=== PATIENT | female | born 1960 | race Caucasian/White ===

== ENCOUNTER 2023-12-29 08:13 | Outpatient (CLI) | payer BC, SELFPAY ==
--- NOTE | ~2023-12-29 | US_ITS ---
EXAMINATION: US carotid duplex BI DATE: 12/29/2023 08:52 INDICATION: Right carotid bruit . Intermittent vertigo and right hand disturbance of skin sensation. TECHNIQUE: Grayscale, color Doppler, and pulsed Doppler images of the cervical carotid arteries were obtained. The degree of vessel stenosis is placed in one of the following categories: normal, <50%, 5 0-69%, >=70% but less than near-occlusion, near-occlusion, or total occlusion. Note that percent sten osis relative to normal distal artery lumen diameter is indirectly measured from velocity measurement s as described by Naresh, et al. Radiology 2003; 229:340-346. COMPARISON: None. FINDINGS: RIGHT: The right common carotid artery (CCA) peak systolic velocity (PSV) is 88 cm/s. The right internal car otid artery (ICA) PSV is 95 cm/s. The right ICA end-diastolic velocity (EDV) is 30 cm/s. The right IC A/CCA PSV ratio is 1.1. Grayscale and color Doppler images yield an estimate of <50% diameter reducti on from plaque in the ICA. The external carotid artery (ECA) PSV is 72 cm/s. There is antegrade flow in the right vertebral artery. LEFT: The left CCA PSV is 73 cm/s. The left ICA PSV is 108 cm/s. The left ICA EDV is 32 cm/s. The left ICA/ CCA PSV ratio is 1.5. Grayscale and color Doppler images yield an estimate of <50% diameter reduction from plaque in the ICA. The ECA PSV is 67 cm/s. There is antegrade flow in the left vertebral artery . IMPRESSION: 1. <50% stenosis in the right internal carotid artery. 2. <50% stenosis in the left internal carotid artery. Reviewed, dictated and finalized at location B.
== END 2023-12-29 08:14 ==
LOC: MICIMG 08:17
PROVIDERS: PCP Family Medicine; Visit Provider Nurse Practitioner Family
DX: R09.89 Other specified symptoms and signs involving the circulatory and respiratory systems (principal); I65.23 Occlusion and stenosis of bilateral carotid arteries
CPT/HCPCS: 93880

== ENCOUNTER 2024-05-16 14:31 | Outpatient (CLI) | payer BC, SELFPAY ==
--- NOTE | ~2024-05-16 | MM_ITS ---
EXAMINATION: MM screening kellee BI w chuck HISTORY: Screening mammogram TECHNIQUE: Craniocaudal and mediolateral oblique 3-D tomosynthesis images were obtained and synthetic 2-D images were generated. CAD analysis was submitted and interpreted. COMPARISON: No prior mammogram is available for comparison at this institution. BREAST PARENCHYMAL COMPOSITION:Dense: The breasts are heterogeneously dense, which may obscure small masses. FINDINGS: No suspicious mass, calcification, or architectural distortion are identified in either itzel ast to suggest malignancy. There has been no suspicious interval change. IMPRESSION: No mammographic evidence of malignancy. Recommend routine screening mammography in one year. BI-RADS Category 1: Negative Reviewed, dictated and finalized at location . LEAF GILDER
== END 2024-05-16 14:32 | disposition home or self-care (01) ==
LOC: MICIMG 14:32
PROVIDERS: PCP Nurse Practitioner Family; Visit Provider Nurse Practitioner Family
DX: Z12.31 Encounter for screening mammogram for malignant neoplasm of breast (principal)
CPT/HCPCS: 77063; 77067

== ENCOUNTER 2024-08-10 08:09 | Emergency (ER) | payer BC, SELFPAY ==
--- NOTE | ~2024-08-10 | XR_ITS ---
EXAMINATION: XR chest 2V DATE: 08/10/2024 08:42 INDICATION: Chest pain and jaw pain TECHNIQUE: PA and lateral views of the chest were obtained. COMPARISON: Chest radiograph dated 01/20/2016 FINDINGS: The lungs remain clear with no focal airspace opacities, pulmonary edema, pleural effusion or pneumot horax. The cardiomediastinal silhouette is normal. Moderate thoracic spondylosis. IMPRESSION: 1. No acute cardiopulmonary disease. Reviewed, dictated and finalized at location A. S PLANNER
--- NOTE | 2024-08-10 08:10 | ECG_ITS ---
Test Date: 2024-08-10 08:16:29 Measurements Intervals [place] Rate: 69 P: 67 WV: 231 QRS: 58 QRSD: 85 T: 42 QT: 364 QTc: 392 Interpretive Statements SINUS RHYTHM WITH FIRST DEGREE AV BLOCK BASELINE ARTIFACT- I, II, III, AVR, AVL, AVF, V1 BORDERLINE ECG No previous ECG available for comparison Electronically Signed On 08-10-2024 08:49:52 CERTIFIED PERSONAL TRAINER by Mau Rivera D.O.
[2024-08-10 08:12] VITALS: BP 169/83; PULSE 73; RESP 18; TEMP 36.4; O2SAT 100
[2024-08-10 08:35] LABS: Basophils Absolute Auto 0.1 K/mm3 (0.0-0.1); Basophils Percent Auto 0.9 % (0.2-1.2); Eosinophils Absolute Auto 0.4 K/mm3 (0-0.3); Eosinophils Percent Auto 3.8 % (0-4.4); Hematocrit 42.2 % (37.0-47.0); Hemoglobin 13.7 g/dL (12.0-15.0); Immature Granulocyte Absolute 0.06 K/mm3 (0.00-0.031); Immature Granulocyte Percent A 0.7 % (0-0.5); Lymphocytes Absolute Auto 4.23 K/mm3 (0.9-3.2); Lymphocytes Percent Auto 46.4 % (18.3-44.2); Mean Corpuscular HGB Conc 32.5 g/dl (32-36); Mean Corpuscular Hemoglobin 30.4 pg (26-34); Mean Corpuscular Volume 93.6 fl (80-100); Mean Platelet Volume 9.4 fl (7.4-10.4); Monocytes Absolute Auto 1.4 K/mm3 (0.1-0.6); Monocytes Percent Auto 14.9 % (2.6-8.5); Neutrophils Percent Auto 33.3 % (45.5-73.1); Platelet Count Result 397 k/mm3 (150-375); Red Blood Count 4.51 M/mm3 (4.2-5.4); Red Cell Distribution Width 14.4 % (11.5-14.5); White Blood Count 9.1 K/mm3 (4.5-10.0)
[2024-08-10 08:49] LABS: INR 0.9; Prothrombin Time 12.6 Seconds (11.1-14.7)
[2024-08-10 08:50] LABS: Partial Thromboplastin Time 25.2 Seconds (22.3-36.8)
[2024-08-10 09:07] LABS: Alanine Aminotransferase 19 U/L (6-35); Alkaline Phosphatase 72 U/L (38-126); Anion Gap 8 mmol/L (4-12); Aspartate Amino Transferase 24 U/L (14-36); Bilirubin,Total 0.6 mg/dL (0.2-1.3); Blood Urea Nitrogen 16 mg/dL (7-17); Carbon Dioxide 27 mmol/L (22-30); Chloride 103 mmol/L (98-107); Estimated CRCL calculation 52 ml/min; Estimated Glomerular Filt Rate > 60; Glucose 84 mg/dL (65-110); Lipase 77 U/L (23-300); Sodium 138 mmol/L (137-145)
[2024-08-10 09:19] LABS: Troponin I < 0.012 ng/mL (0.000-0.034)
[2024-08-10 10:54] VITALS: BP 160/81; PULSE 64; RESP 18; O2SAT 100
--- NOTE | 2024-08-10 11:03 | PC.NURSE ---
63yo F to ER c/o chest pain with radiation to neck, back & jaw lasting approx 30 mins. Denies any pain since. Reports JENKINS at the time of chest pain onset, denies N/V or dizziness. Denies recent illness. Pt resting comfortable at this time. Denies cardiac hx, only familial. Pt A&Ox4, speech clear. RR even and unlabored. Skin WDL. Pt placed on continuous cardiac, nibp and pulse oximetry monitor. VS as charted. Call light in reach with family at bedside. Warm blanket provided.
--- NOTE | 2024-08-10 11:33 | ED.GENADULT ---
HPI - General Adult General Chief complaint: Chest Pain Stated complaint: chest pain Time Seen by Provider: 08/10/24 11:19 History of Present Illness HPI narrative: Patient 63-year-old female who presents emergency department chief complaint of chest pain. Patient reports she was driving in her vehicle and started having midsternal chest pain that radiated up into her jaw and neck. The patient states that symptoms lasted about 30 minutes reports they resolved at this point. Patient reports no prior history of cardiac disease reports she has family history cardiac Related Data Allergies Allergy/AdvReac Type Severity Reaction Status Date / Time aspirin Allergy Mild MAKES MY Verified 08/10/24 10:53 STOMACH RAW Review of Systems Review of Systems: A 10 system review of systems was completed on the patient and is negative except for what is stated in the HPI. Nursing and ancillary documentation was reviewed. Exam Narrative: GENERAL: Well-appearing, well-nourished, and in no acute distress. HEAD: Normocephalic, atraumatic. EYES: PERRLA and EOMI. ENT: Nares clear, no rhinorrhea or epistaxis. Mucous membranes moist. NECK: Supple. CHEST: Clear to auscultation. No respiratory distress. HEART: Regular rate and rhythm. No murmur heard. Normal peripheral pulses. ABDOMEN: Soft, nontender, nondistended, normal active bowel sounds. EXTREMITIES: Normal range of motion. No edema. SKIN: Warm, dry, no rash. NEURO: No focal deficits. Alert and oriented x3. PSYCH: Normal mood and affect. Course Vital Signs Vital signs: Vital Signs Temperature 36.4 C 08/10/24 08:12 Pulse Rate 73 08/10/24 08:12 Respiratory Rate 18 08/10/24 08:12 Blood Pressure 169/83 H 08/10/24 08:12 Pulse Oximetry 100 08/10/24 08:12 Oxygen Delivery Room Air 08/10/24 08:12 Temperature 36.4 C 08/10/24 08:12 Pulse Rate 60 08/10/24 11:44 Respiratory Rate 18 08/10/24 11:44 Blood Pressure 120/70 08/10/24 11:44 Pulse Oximetry 99 08/10/24 11:44 Oxygen Delivery Room Air 08/10/24 11:02 Medical Decision Making [facility] Narrative Medical decision making narrative: Differential diagnosis includes ACS, atypical chest pain, CBC was within normal limits CMP was within normal limits initial troponin was negative Repeat troponin was negative Vital Signs Vital Signs: Vital Signs Temperature 36.4 C 08/10/24 08:12 Pulse Rate 73 08/10/24 08:12 Respiratory Rate 18 08/10/24 08:12 Blood Pressure 169/83 H 08/10/24 08:12 Pulse Oximetry 100 08/10/24 08:12 Oxygen Delivery Room Air 08/10/24 08:12 Temperature 36.4 C 08/10/24 08:12 Pulse Rate 60 08/10/24 11:44 Respiratory Rate 18 08/10/24 11:44 Blood Pressure 120/70 08/10/24 11:44 Pulse Oximetry 99 08/10/24 11:44 Oxygen Delivery Room Air 08/10/24 11:02 Lab Data 08/10/24 08:23 08/10/24 08:23 Labs: Lab Results 08/10/24 08/10/24 Range/Units 08:23 11:43 WBC 9.1 (4.5-10.0) K/mm3 RBC 4.51 (4.2-5.4) M/mm3 Hgb 13.7 (12.0-15.0) g/dL Hct 42.2 (37.0-47.0) % MCV 93.6 (80-100) fl MCH 30.4 (26-34) pg MCHC 32.5 (32-36) g/dl RDW 14.4 (11.5-14.5) % Plt Count 397 H (150-375) k/mm3 MPV 9.4 (7.4-10.4) fl Immature Gran % (Auto) 0.7 H (0-0.5) % Neut % (Auto) 33.3 L (45.5-73.1) % Lymph % (Auto) 46.4 H (18.3-44.2) % Moore % (Auto) 14.9 H (2.6-8.5) % Eos % (Auto) 3.8 (0-4.4) % Baso % (Auto) 0.9 (0.2-1.2) % Lymph # (Auto) 4.23 H (0.9-3.2) K/mm3 Moore # (Auto) 1.4 H (0.1-0.6) K/mm3 Eos # (Auto) 0.4 H (0-0.3) K/mm3 Baso # (Auto) 0.1 (0.0-0.1) K/mm3 Abs Immat Gran (auto) 0.06 H (0.00-0.031) K/mm3 Absolute Neuts (auto) 3.0 (1.3-6.7) K/mm3 Absolute Nucleated RBC 0.000 (0.0-0.012) K/mm3 Nucleated RBC % 0.0 (0.0-0.2) % PT 12.6 (11.1-14.7) Seconds INR 0.9 APTT 25.2 (22.3-36.8) Seconds Sodium 138 (137-145) mmol/L Potassium 4.0 (3.4-5.0) mmol/L Chloride 103 (98-107) mmol/L Carbon Dioxide 27 (22-30) mmol/L Anion Gap 8 (4-12) mmol/L BUN 16 (7-17) mg/dL Creatinine 0.87 (0.7-1.0) mg/dL Estim Creat Clear Calc 52 ml/min Estimated GFR > 60 (59 - ) Glucose 84 (65-110) mg/dL Calcium 9.0 (8.4-10.2) mg/dL Total Bilirubin 0.6 (0.2-1.3) mg/dL AST 24 (14-36) U/L ALT 19 (6-35) U/L Alkaline Phosphatase 72 (38-126) U/L Troponin I < 0.012 < 0.012 (0.000-0.034) ng/mL Total Protein 7.0 (6.3-8.2) g/dL Albumin 4.0 (3.5-5.1) g/dL Lipase 77 (23-300) U/L Discharge Plan Discharge Clinical Impression: Chest pain Patient Disposition: Home, Self-Care Condition: Stable Instructions: Antibiotic Form, Chest Pain (ED) Patient Language: Yoruba Follow-up/Referrals: Jer,VERONICA Thacker [Primary Care Provider] - Time of Disposition: 12:32
--- NOTE | 2024-08-10 11:38 | ECG_ITS ---
Test Date: 2024-08-10 11:49:45 Measurements Intervals [place] Rate: 60 P: 31 AR: 223 QRS: 47 QRSD: 80 T: 33 QT: 401 QTc: 401 Interpretive Statements SINUS RHYTHM WITH FIRST DEGREE AV BLOCK BASELINE ARTIFACT- I, II, AVR, V1 BORDERLINE ECG Compared to ECG 08/10/2024 08:16:29 No significant changes Electronically Signed On 08-10-2024 12:00:38 FIELD ARTILLERY FIRE CONTROL MAN by Mau Rivera D.O.
[2024-08-10 11:44] VITALS: BP 120/70; PULSE 60; RESP 18; O2SAT 99
--- OUTSIDE RECORDS SUMMARY | 2024-08-10 11:50 | XMS_ITS | Encounter Summary ---
Author Organization [facility] Address [facility] [place] [address] Care Team Providers Care Collection Officer Name Role Phone Becky Connors MD Primary Care Provider Encounter Details Date Type Department Care Team (Late st Contact Info) Description 01/30/2021 Prep for Procedure [facility] Day [facility] [address] [place] [address] Be Torres MD [address] [place] [address] [phone] Social History Tobacco Use Types Packs/Day Years Used Date Smoking Tobacco: Never Smokeless Tobacco: Never Alcohol Use Standard Drinks/Week Comments No 0 (1 standard drink = 0.6 oz pur e alcohol) AUDIT-C Answer Date Recorded Frequency of Alcohol Consumption Never 03/04/2019 Average Number of Drinks Not on file 019 Frequency of Binge Drinking Not on file 02/04 Comments No Sex and Gender Information Value Date Recorded Sex Assigned at Not on file Legal Sex Female 1:35 AM CDT Gender Identity Not on file Sexual Orientation Not on file documented as of this encounter Plan of Treatment Not on file documented as of this encounter Results * PRE-SURGICAL/PRE-PROCEDURE CORONAVIRUS (COVID 19) (02/04/2021 7:26 AM CDT) SPECIMEN SOURCE NASOPHARYNGEAL SWAB 02/04/2021 7:22 AM CDT [facility] () [facility] CORONAVIRUS SARS COV 2 PCR (RESP) NEGATIVE NEGATIVE 02/05/2021 1:53 AM CDT [facility] Comment: THE SARS-CoV-2 TEST HAS BEEN AUTHORIZED BY THE FDA UNDER AN EUA FOR USE BY AUTHORIZED LABORATORIES. PERFORMED BY NUCLEIC ACID AMPLIFICATION PCR FIRST TEST NO 02/04/2021 7:22 AM CDT [facility] EMPLOYED IN HEALTHCARE NO 02/04/2021 7:22 AM CDT [facility] SYMPTOMATIC DEFINED BY CDC NO 02/04/2021 7:22 AM CDT [facility] HOSPITALIZATION STATUS NO 02/04/2021 7:22 AM CDT [facility] PATIENT IN ICU NO 02/04/2021 7:22 AM CDT [facility] RESIDENT OF [facility] NO 02/04/2021 7:22 AM CDT [facility] NASOPHARYNGEAL SWAB / Unknown 02/04/2021 7:26 AM CDT Be Torres MD MICROBIOLOGY - GENERAL ORDERABLE S Final Result [facility] [address] [place] [address], [place] [phone] [facility] [address] [place] [address], [place] [phone] documented in this encounter Visit Diagnoses Diagnosis Pre-op testing- Primary Preoperative examination, unspecified documented in this encounter Additional Health Concerns Infection Onset Date Last Indicated Resolved Time COVID-19 Rule Out 02/04/2021 02/04/2021 02/05/2021 1:54 AM CDT documented as of this encounter Care Teams Collection Officer Relationship Specialty Start Date End Date Becky Connors MD [address] [place] [address] PCP - General FAMILY PRACTICE 03/04/19 documented as of this encounter
--- OUTSIDE RECORDS SUMMARY | 2024-08-10 11:50 | XMS_ITS | Encounter Summary ---
Author Organization [facility] Address [facility] [place] [address] Care Team Providers Care Dip Brazier Name Role Phone Becky Connors MD Primary Care Provider Encounter Details Date Type Department Care Team (Late st Contact Info) Description 05/17/2020 Prep for Procedure [facility] Day [facility] [address] [place], [place] [phone] Be Torres MD [address] [place] [phone] Social History Tobacco Use Types Packs/Day Years [...] on file Sexual Orientation Not on file COVID-19 Exposure Response Date Recorded In the last month, have you been in contact with someone who was confirmed or suspected to have Coronavirus / COVID-19? No / Unsure 05/07/2020 1:01 PM ARCHITECTURE DRAFTER documented as of this encounter Plan of Treatment Not on file documented as of this encounter Results * (ABNORMAL) PRE-SURGICAL/PRE-PROCEDURE CORONAVIRUS (COVID 19) (05/21/2020 1:00 PM ARCHITECTURE DRAFTER) CORONAVIRUS SARS COV 2 PCR (RESP) DETECTED(A) NOT DETECTED 05/22/2020 9:36 PM ARCHITECTURE DRAFTER [facility] Comment: A Detected result is considered a positive test result for COVID-19. This indicates that RNA from SARS-CoV-2 (formerly 2019-nCoV) was detected, and the patient is infected with the virus and presumed to be contagious. If requested by public health authority, specimen will be sent for additional testing. Please review the Fact Sheets and FDA authorized labeling available for health care providers and patients using the following websites: https://www.[employer].Done In :[employer]/home/Covid-19/HCP/NAAT/fact-sheet2 https://www.[employer].Done In :[employer]/home/Covid-19/Patients/NAAT/ fact-sheet2 This test has been authorized by the FDA under an Emergency Use Authorization (EUA) for use by authorized laboratories. Due to the current public health emergency, [facility] is receiving a high volume of samples from a wide variety of swabs and media for COVID-19 testing. In order to serve patients during this public health crisis, samples from appropriate clinical sources are being tested. Negative test results derived from specimens received in non-commercially manufactured viral collection and transport media, or in media and sample collection kits not yet authorized by FDA for COVID-19 testing should be cautiously evaluated and the patient potentially subjected to extra precautions such as additional clinical monitoring, including collection of an additional specimen. Methodology: Nucleic Acid Amplification Test (NAAT) includes RT-PCR or TMA Additional information about COVID-19 can be found at the [facility] website: www.[employer].Done In :[employer]/Covid19. Test performed at [facility] [address] [place] [address] Director: CODY MARQUEZ DO,MPH FIRST TEST YES 05/21/2020 12:56 PM ARCHITECTURE DRAFTER [facility] EMPLOYED IN HEALTHCARE NO 05/21/2020 12:56 PM ARCHITECTURE DRAFTER [facility] SYMPTOMATIC DEFINED BY CDC NO 05/21/2020 12:56 PM ARCHITECTURE DRAFTER [facility] DATE OF SYMPTOM ONSET =FASTING UNKNOWN 05/21/2020 1:09 PM ARCHITECTURE DRAFTER [facility] HOSPITALIZATION STATUS NO 05/21/2020 12:56 PM ARCHITECTURE DRAFTER [facility] PATIENT IN ICU NO 05/21/2020 12:56 PM ARCHITECTURE DRAFTER [facility] RESIDENT OF [facility] NO 05/21/2020 12:56 PM ARCHITECTURE DRAFTER [facility] =FASTING UNKNOWN 05/21/20 1:09 PM ARCHITECTURE DRAFTER [facility] PATIENT'S RACE WHITE OR 05/21/2020 12:56 PM ARCHITECTURE DRAFTER [facility] ETHNICITY NONHISPANIC 05/21/2020 12:56 PM ARCHITECTURE DRAFTER [facility] SOURCE (QST) NASOPHARYNGEAL SWAB 05/21/2020 12:56 PM ARCHITECTURE DRAFTER [facility] NASOPHARYNGEAL SWAB / Unknown 05/21/2020 1:00 PM ARCHITECTURE DRAFTER us Be Torres MD MICROBIOLOGY - GENERAL ORDERABLE S Final Result Performing Organization Address City/State/[facility] Co de Phone Number [facility] [address] [place] [address], [facility] [address] documented in this encounter Visit Diagnoses Diagnosis Preop testing- Primary Preoperative examination, unspecified documented in this encounter Additional Health Concerns Infection Onset Date Last Indicated Resolved Time COVID-19 Rule Out 05/21/2020 05/21/2020 05/22/2020 9:36 PM ARCHITECTURE DRAFTER COVID-19 Confirmed 05/21/2020 05/21/2020 12:34 AM ARCHITECTURE DRAFTER COVID-19 Rule Out 02/04/2021 02/04/2021 02/05/2021 1:54 AM CDT documented as of this encounter Care Teams Dip Brazier Relationship Specialty Start Date End Date Becky Connors MD [address] [place] [phone] PCP - General FAMILY PRACTICE 03/04/19 documented as of this encounter
--- OUTSIDE RECORDS SUMMARY | 2024-08-10 11:50 | XMS_ITS | Clinical Summary ---
Author Organization [facility] Address [address] [place] [address] Care Team Providers Care Finisher Brush Name Role Phone Becky Connors MD Primary Care Provider Allergies Active Allergy Reactions Criticality Noted Date Comments Aspirin Nausea and Vomiting 04/08/2020 Medications doxycycline hyclate (VIBRAMYCIN) 100 MG capsuleIndicati ons:Chronic cough Take 1 capsule (100 mg total) by mouth 2 (two) times daily. 28 capsule 11/05/2022 Active famotidine (PEPCID) 20 MG tabletIndicatio ns:Chronic cough Take 1 tablet (20 mg total) by mouth 2 (two) times daily. 60 tablet 11/05/2022 Active methylPREDNISol one, JESSICA, (MEDROL DOSEPAK) 4 MG tabletIndicatio ns:Chronic cough 6 TABLETS ON DAY ONE, 5 TABLETS DAY TWO, 4 TABLETS DAY THREE, 3 TABLETS DAY FOUR, 2 TABLETS DAY FIVE, AND 1 TABLET DAY SIX 1 each 11/05/2022 Active traMADol (ULTRAM) 50 MG tabletIndicatio ns:Acute Pain < 3 Day Supply Take 1 tablet (50 mg total) by mouth every 6 (six) hours as needed for Pain. Indications: Acute Pain < 3 Day Supply 10 tablet 12/15/2023 Active Active Problems Problem Noted Date Diagnosed Date Screening for colon cancer 05/23/2020 Overview (05/23/2020): Added automatically from request for surgery [id number] Generalized abdominal pain 05/08/2020 Overview (05/08/2020): Added automatically from request for surgery [id number] Capsulitis 11/01/2013 Hypertrophic condition of skin 11/01/2013 Onychomycosis 11/01/2013 Foot pain 10/11/2013 Allergic rhinitis 08/14/2011 Family History Medical History Relation Comments Cancer Father Heart Disease Father Heart Disease Mother Kidney Disease Mother Relation Status Comments Father Mother Social History Tobacco Use Types Packs/Day Years Used Date Smoking Tobacco: Never Smokeless Tobacco: Never Tobacco Cessation:Counseling Given: No Alcohol Use Standard Drinks/Week Comments No 0 (1 standard drink = 0.6 oz pur e alcohol) AUDIT-C Answer Date Recorded Frequency of Alcohol Consumption Never 03/04/2019 Average Number of Drinks Not on file 019 Frequency of Binge Drinking Not on file 02/04 PHQ-2 Answer Date Recorded Patient Health Questionnaire-2 Score 0 11/05/2022 Comments No Sex and Gender Information Value Date Recorded Sex Assigned at Not on file Legal Sex Female 1:35 AM CDT Gender Identity Not on file Sexual Orientation Not on file Last Filed Vital Signs Vital Sign Reading Time Taken Comments Blood Pressure 124/58 12/15/2023 3:34 AM CDT Pulse 58 12/15/2023 3:34 AM CDT Temperature 35.9 C (96.7 F) 12/15/2023 3:34 AM CDT Respiratory Rate 16 12/15/2023 3:34 AM CDT Oxygen Saturation 100% 12/15/2023 3:34 AM CDT Inhaled Oxygen Concentration - - Weight 69.9 kg (154 lb) 12/15/2023 1:15 AM CDT Height 165.1 cm (5' 5 ) 12/15/2023 1:15 AM CDT Body Mass Index 25.63 12/15/2023 1:15 AM CDT Plan of Treatment Health Maintenance Due Date Last Done Comments Cervical Cancer Screening Pa p Smear (Age 30 to 64) Every 3 Years 1960 Annual Physical 10/18/1963 Hepatitis C 1978 DTaP, Tdap and Td Vaccines ( 1 - Tdap) 10/18/1979 Cervical Cancer Screening Pa p with HPV Testing (Age 30 to 64) Every 5 Years 1990 Cervical Cancer Screening with HPV 1990 Mammogram Screening 2000 Zoster Vaccines (1 of 2) 2010 PHQ-2 (Physician [place]) 11/06/2023 11/05/2022 COVID-19 Vaccine (1 - 2023-2 5 season) 2024 Influenza Adult (#1) 2024 PHQ-2 (Physician [place]) 07/05/2024 11/05/2022 Colorectal Cancer Screening Colonoscopy (10 Years) 02/07/2031 02/07/2021 RSV Immunization or 60+ Years (1 - 1-dose 75+ series) 10/18/2035 Meningococcal B Vaccine Aged Out No l onger eligible based on patient's age to complete this topic Meningococcal Vaccine Aged Out No mary paul eligible based on patient's age to complete this topic Pneumococcal Vaccine: Pediat rics (0 to 5 Years) and At-Risk Patients (6 to 64 Years) Aged Out No longer eligi ble based on patient's age to complete this topic RSV Immunizations Under 20 Months Aged Out No longer eligible based on patient's age to complete this topic [place] [address] [place] [address] Care Teams Finisher Brush Relationship Specialty Start Date End Date Becky Connors MD [address] [place] [id number] PCP - General FAMILY PRACTICE 03/04/19
[2024-08-10 12:12] LABS: Troponin I < 0.012 ng/mL (0.000-0.034)
[2024-08-10 12:43] VITALS: BP 122/86; PULSE 66; RESP 16; TEMP 36.4; O2SAT 99
== END 2024-08-10 12:45 | disposition home or self-care (01) ==
PROVIDERS: Emergency Provider Emergency Medicine; PCP Nurse Practitioner Family
DX: R07.2 Precordial pain (principal); I44.0 Atrioventricular block, first degree
CPT/HCPCS: 36415; 71046; 80053; 83690; 84484; 85025; 85610; 85730; 93005; 99284

== ENCOUNTER 2024-08-30 07:41 | Outpatient (CLI) | payer BC, SELFPAY ==
--- NOTE | ~2024-08-30 | US_ITS ---
EXAMINATION: US abdomen complete DATE: 08/30/2024 08:17 INDICATION: Precordial pain. Right-sided pain. TECHNIQUE: Multiple grayscale and Doppler ultrasound images of the abdomen were obtained. COMPARISON: None FINDINGS: The visualized portions of the head, body, and tail of pancreas are normal. Abdominal aorta is normal in caliber. Inferior vena cava is normal. There are cysts in the liver measuring up to 16 mm. No liver surface nodularity. There is normal flow in main portal vein. The gallbladder is normal in size. There is a 3 mm polyp in the gallbladder, likely a benign cholesterol polyp needing no follo w-up. No gallstones or gallbladder wall thickening. There is no sonographic Shah's sign. The common duct is normal and measures 3 mm. The spleen is normal in size. The kidneys are normal in size. IMPRESSION: 1. No etiology for the patient's symptoms. Reviewed, dictated and finalized at location [] WORKER
== END 2024-08-30 07:42 | disposition home or self-care (01) ==
LOC: MICIMG 07:41
PROVIDERS: PCP Nurse Practitioner Family; Visit Provider Nurse Practitioner Family
DX: R07.2 Precordial pain (principal)
CPT/HCPCS: 76700

== ENCOUNTER 2024-10-04 01:13 | Day surgery (SDC) | payer BC, SELFPAY ==
[2024-09-27 13:23] VITALS: BMI 25.9
--- NOTE | 2024-09-27 13:24 | PC.NURSE ---
Report to the Outpatient Waiting Room, entrance under the green pavilion located off [facility], at time _1215_ on date _[id number]_. Planned Procedure Time: _215pm_.? Time changes happen often and if your time is changed the preop area will call you the afternoon before. - You and your visitor will be asked to self-screen and do not enter if you have any COVID symptoms. Please call surgeon if you need to reschedule. - A mask is optional within the hospital at this time. Patients may have clear liquids (water, carbonated beverages, clear teas, apple juice) until 3 hours prior to surgery with a maximum of 20 ounces. - No food from midnight until time of surgery and no smoking, or chewing tobacco (or any form of nicotine). No chewing gum, candy or mints. Take only the following medications with a SIP of water on the morning of surgery: __None___ DO NOT STOP ANY OF YOUR OTHER PRESCRIPTION MEDICATIONS PRIOR TO SURGERY EXCEPT THE FOLLOWING Hold all vitamins and supplements for 3 days per anesthesiologist. Medications to discontinue per physician Date to take last dose Please no make-up, nail ukrainian, hairspray, perfume, deodorant, or body powder the day of surgery.? No jewelry (including any body piercings) or valuables the day of surgery, leave them at home.? Please take a shower or bath the night before, or the morning of, surgery with an antibacterial soap.? Wear comfortable, loose fitting clothing.? - Jewelry must be removed prior to entering the operating room.? Rings and piercings that are not removed may be cut off. - The hospital will not accept responsibility for valuables.? - Please leave all valuables, including medications, at home the day of surgery. If you are going home after surgery, a licensed racecar driver must drive you home.? - NO public transportation without another adult if you receive anesthesia. - We recommend that an adult stay with you for 24 hours following discharge. - We also recommend that you do not drive, make important decision, drink alcoholic beverages, or take any drugs that were not prescribed by your health care provider for at least 24 hours after your discharge time. Follow any additional instructions given to you from your surgeon. Telephone instructions given to __Welizandroy__and asked if any additional questions and then verbalized understanding. Patient advised to call surgeon office or pre surgery nurse liaison [phone] if any additional questions.
[2024-10-04] VITALS (10 sets, daily range): BP systolic 118–174; BP diastolic 62–74; PULSE 68–80; RESP 12–20; TEMP 36.3–37.1; O2SAT 98–100; BMI 25.9
--- OUTSIDE RECORDS SUMMARY | 2024-10-04 01:16 | XMS_ITS | Clinical Summary ---
Author Organization [facility] Address [address] [place] [address] Care Team Providers Care Gravity Prospector Name Role Phone Becky Connosr MD Primary Care Provider Allergies Active Allergy [...] (05/23/2020): Added automatically from request for surgery [id number] Generalized abdominal pain 05/08/2020 Overview (05/08/2020): Added automatically from request for surgery [id number] Capsulitis 11/01/2013 Hypertrophic condition of skin 11/01/2013 [...] 2000 Zoster Vaccines (1 of 2) 2010 COVID-19 Vaccine ( - 2023-2 5 season) 2024 Influenza Adult (#1) 2024 PHQ-2 (Physician [place]) 07/05/2024 11/05/2022 Colorectal Cancer Screening Colonoscopy (10 [...] patient's age to complete this topic [place] [address] [place] [address] Care Teams Gravity Prospector Relationship Specialty Start Date End Date Becky Connors MD [address] [place] [address] PCP - General FAMILY PRACTICE 03/04/19
--- OUTSIDE RECORDS SUMMARY | 2024-10-04 01:16 | XMS_ITS | Encounter Summary ---
Author Organization [facility] Address [facility] [place] [address] Care Team Providers Care Credit Card Associate Name Role Phone Becky Connors MD Primary Care Provider Encounter Details Date Type Department Care Team (Late st Contact Info) Description 01/30/2021 Prep for Procedure [facility] [address] [place] [address] eB Torres MD [address] [place] [address] [phone] Social History Tobacco Use Types Packs/Day Years [...] SOURCE NASOPHARYNGEAL SWAB 02/04/2021 7:22 AM CDT [facility] () [facility] CORONAVIRUS SARS COV 2 PCR (RESP) NEGATIVE NEGATIVE 02/05/2021 1:53 AM CDT [facility] Comment: THE SARS-CoV-2 TEST HAS BEEN AUTHORIZED BY THE FDA UNDER AN EUA FOR USE BY AUTHORIZED LABORATORIES. PERFORMED BY NUCLEIC ACID AMPLIFICATION PCR FIRST TEST NO 02/04/2021 7:22 AM CDT [facility] EMPLOYED IN HEALTHCARE NO 02/04/2021 7:22 AM CDT [facility] SYMPTOMATIC DEFINED BY CDC NO 02/04/2021 7:22 AM CDT [facility] HOSPITALIZATION STATUS NO 02/04/2021 7:22 AM CDT [facility] PATIENT IN ICU NO 02/04/2021 7:22 AM CDT [facility] RESIDENT OF [facility] CARE NO 02/04/2021 7:22 AM CDT [facility] NASOPHARYNGEAL SWAB / Unknown 02/04/2021 7:26 AM CDT Be Torres MD MICROBIOLOGY - GENERAL ORDERABLE S Final Result [facility] [address] [place] [address], [place] [phone] [facility] [address] [place] [address], [place] [phone] documented in this encounter Visit Diagnoses Diagnosis Pre-op testing- Primary Preoperative examination, unspecified documented in this encounter Additional Health Concerns Infection Onset Date Last Indicated Resolved Time COVID-19 Rule Out 02/04/2021 02/04/2021 02/05/2021 1:54 AM CDT documented as of this encounter Care Teams Credit Card Associate Relationship Specialty Start Date End Date Becky Connors MD [address] [place] [address] PCP - General FAMILY PRACTICE 03/04/19 documented as of this encounter
--- OUTSIDE RECORDS SUMMARY | 2024-10-04 01:16 | XMS_ITS | Encounter Summary ---
Author Organization [facility] Address [facility] [place] [address] Care Team Providers Care Welfare Service Aide Name Role Phone Becky Connors MD Primary Care Provider Encounter Details Date Type Department Care Team (Late st Contact Info) Description 05/17/[address] [facility] Day [facility] [address] [place], [place] [id number] Be Torres MD [address] [place] [id number] Social History Tobacco Use Types Packs/Day Years [...] COVID-19? No / Unsure 05/07/2020 1:01 PM PATIENT CARE COORDINATOR documented as of this encounter Plan of Treatment Not on file documented as of this encounter Results * (ABNORMAL) PRE-SURGICAL/PRE-PROCEDURE CORONAVIRUS (COVID 19) (05/21/2020 1:00 PM PATIENT CARE COORDINATOR) CORONAVIRUS SARS COV 2 PCR (RESP) DETECTED(A) NOT DETECTED 05/22/2020 9:36 PM PATIENT CARE COORDINATOR [email or web address] Comment: A Detected result is considered a [...] providers and patients using the following websites: https://www.[employer].Campus Shift/home/Covid-19/HCP/NAAT/fact-sheet2 https://www.[employer].Campus Shift/home/Covid-19/Patients/NAAT/ fact-sheet2 This test has been authorized by the FDA under an Emergency Use Authorization (EUA) for use by authorized laboratories. Due to the current public health emergency, [facility] is receiving a high volume of samples [...] about COVID-19 can be found at the [facility] website: www.[employer].Campus Shift/Covid19. Test performed at [email or web address] [place] [address] [place] [address] Director: CODY MARQUEZ DO,MPH FIRST TEST YES 05/21/2020 12:56 PM PATIENT CARE COORDINATOR [facility] EMPLOYED IN HEALTHCARE NO 05/21/2020 12:56 PM PATIENT CARE COORDINATOR [facility] SYMPTOMATIC DEFINED BY CDC NO 05/21/2020 12:56 PM PATIENT CARE COORDINATOR [facility] DATE OF SYMPTOM ONSET =FASTING UNKNOWN 05/21/2020 1:09 PM PATIENT CARE COORDINATOR [facility] HOSPITALIZATION STATUS NO 05/21/2020 12:56 PM PATIENT CARE COORDINATOR [facility] PATIENT IN ICU NO 05/21/2020 12:56 PM PATIENT CARE COORDINATOR [facility] RESIDENT OF [facility] NO 05/21/2020 12:56 PM PATIENT CARE COORDINATOR [facility] =FASTING UNKNOWN 05/21/20 1:09 PM PATIENT CARE COORDINATOR [facility] PATIENT'S RACE WHITE OR 05/21/2020 12:56 PM PATIENT CARE COORDINATOR [facility] ETHNICITY NONHISPANIC 05/21/2020 12:56 PM PATIENT CARE COORDINATOR [facility] SOURCE (QST) NASOPHARYNGEAL SWAB 05/21/2020 12:56 PM PATIENT CARE COORDINATOR [facility] NASOPHARYNGEAL SWAB / Unknown 05/21/2020 1:00 PM PATIENT CARE COORDINATOR us Be Torres MD MICROBIOLOGY - GENERAL ORDERABLE S Final Result Performing Organization Address City/State/[facility] Co de Phone Number [facility] [address] [place] [address], [email or web address] [address] documented in this encounter Visit Diagnoses Diagnosis Preop testing- Primary Preoperative examination, unspecified documented in this encounter Additional Health Concerns Infection Onset Date Last Indicated Resolved Time COVID-19 Rule Out 05/21/2020 05/21/2020 05/22/2020 9:36 PM PATIENT CARE COORDINATOR COVID-19 Confirmed 05/21/2020 05/21/2020 12:34 AM PATIENT CARE COORDINATOR COVID-19 Rule Out 02/04/2021 02/04/2021 02/05/2021 1:54 AM CDT documented as of this encounter Care Teams Welfare Service Aide Relationship Specialty Start Date End Date Becky Connors MD [address] [place] [id number] PCP - General FAMILY PRACTICE 03/04/19 documented as of this encounter
--- NOTE | 2024-10-04 11:34 | WPDHPUPDATE1 ---
History and Physical Update Update Date/Time: 10/04/24 11:34 History and Physical has been reviewed, including an updated exam of the patient. There are NO changes in the patient's condition. Risks, benefits, and alternatives have been discussed and questions answered. Patient agrees to proceed with procedure.
[2024-10-04] MEDS: KETOROLAC 15 MG/ML VIAL (*BKC) IV PUSH (13:38)
[2024-10-04] MEDS: ACETAMINOPHEN 500 MG TABLET 1000 MG PO (13:38)
[2024-10-04] MEDS: LACTATED RINGERS 1,000 ML 30 ML IV CONT ×2 (13:39→14:53)
[2024-10-04 13:40] LABS: Amylase 62 U/L (30-110)
--- NOTE | 2024-10-04 13:47 | P.PNAN_ITS ---
Anes - Initial Pre Proc Eval Procedure: Operation Date: 10/04/24 14:15 Proposed Procedures p Laparoscopic Cholecystectomy - Polly Sim MD Date/Time: 10/04/24 13:47 Surgeon: Polly Sim MD Pre Op Diagnosis: Chr Cholecystitis Patient Data Age: 63 Gender: F Height: 1.65 m Weight: 70.6 kg Last Vital Signs Temp 37.1 C 10/04/24 13:34 Pulse 68 10/04/24 13:34 BP 174/74 H 10/04/24 13:34 Pulse Ox 100 10/04/24 13:34 O2 Del Method Room Air 10/04/24 13:34 Allergies Allergy/AdvReac Type Severity Reaction Status Date / Time aspirin AdvReac Mild MAKES MY Verified 10/04/24 13:33 STOMACH RAW Home Medications ?Medication ?Instructions ?Recorded ?Confirmed ?Type No Home Medications 09/27/24 09/27/24 History Laboratory Tests 10/04/24 13:23 Amylase 62 U/L (30-110) Patient hx anesthesia problems: none Family hx anesthesia problems: none Results Review: All pre-operative results and documents have been reviewed as part of the pre- operative evaluation. [facility] Past Medical History Medical History (Updated 09/27/24 @ 10:03 by Moni Duran CMA) Headache Gallbladder disorder Arthritis Allergies Surgical History Surgical History (Updated 09/27/24 @ 09:34 by Arline Pedro MA) History of tonsillectomy and adenoidectomy H/O parathyroidectomy History of ankle surgery Family History Family History (Updated 09/27/24 @ 09:35 by Arline Pedro MA) Father Cerebrovascular accident Heart disease Mother Heart disease Social History Social History Smoking status: Never smoker Anes - Eval Final PreProcedure Day of Procedure 10/04/24 13:47 Patient weight: overweight Heart: regular rate and rhythm Lungs: clear to auscultation Airway: Mallampati scale class II Neurological: alert and oriented Last oral intake: >/= 8 hours ASA classification: II Emergent: no Anesthetic plan: proceed Anesthesia type and monitoring: general GIVS and standard monitoring Results Review: All pre-operative results and documents have been reviewed as part of the pre- operative evaluation. Informed Consent: The patient's anesthetic plan and its attendant risks and benefits were discussed with the patient/family/POA. Questions were solicited and answers provided to the satisfaction of the patient/family/POA.
[2024-10-04] MEDS: ceFAZolin 2 GM/D5W 50 ML 2 GM/50 ML BAG IVPB (14:07)
[2024-10-04] MEDS: BUPIVACAINE/EPINEPHRINE 0.5% 50 ML VIAL 30 ML INFILTRATE (14:07)
--- NOTE | 2024-10-04 14:46 | W.PM.PROC2 ---
Procedure Note - Detailed Date of Procedure 10/04/24 Pre-op Diagnosis chronic cholecystitis Post-op Diagnosis Same Procedure Performed Laparoscopic cholecystectomy Surgeon Polly Sim MD Anesthesia General Indications 63-year-old female presenting with upper abdominal pain. Workup, including imaging significant for chronic cholecystitis Findings chronic cholecystitis Description of Procedure The patient was taken to the operating room placed in the supine position. After adequate induction of general anesthesia, the patient was prepped and draped in normal sterile fashion. A time-out was then performed to verify the patient's identity as well as the procedure being performed. I then made a 5 mm incision in the infraumbilical region. Through this, a Veress needle was placed into the peritoneal cavity and CO2 gas was then insufflated. After adequate pneumoperitoneum was achieved, the Veress needle was removed and a 5 mm optiview trocar was placed through this incision under direct visualization. I then placed the laparoscope through this trocar site and under direct visualization placed a further 12 mm subxiphoid port as well as 2 additional 5 mm ports in the right upper abdomen. The gallbladder was then identified and was noted to be moderately inflamed and distended. I was able to place a grasper at the dome of the gallbladder and this was retracted anterior and cephalad up over the liver. A 2nd retractor was then placed at the infundibulum and retracted laterally, this allowed visualization of the triangle of Calot. I then was able to visualize the cystic duct in its entirety from its proximal insertion into the gallbladder, to its distal junction with the common hepatic/common bile duct junction. At this point, I carefully skeletonized the proximal cystic duct with the [place] dissector. I then clipped and transected the proximal cystic duct. Next I visualized the cystic artery. Again the artery was skeletonized, clipped, and transected. I then used the Bovie cautery to take down the peritoneal attachments of the gallbladder off the liver bed. Once the gallbladder specimen was completely detached, an endo-pouch was placed through the 12 mm port site. I then placed the gallbladder specimen into the Endo pouch and removed the endo-pouch from the 12 mm port site. The specimen will now be sent to pathology for further review. I then copiously irrigated the right upper quadrant. Hemostasis was noted in the liver bed, the clips were noted to be in good position on both the cystic duct stump and the cystic artery stump. No other pathology was noted in the right upper quadrant. I then moved the laparoscope to the subxiphoid port. No iatrogenic injury or other pathology was noted in the lower abdomen. I then closed the 12 mm trocar site under direct visualization using the Phillip cone and 0 Vicryl suture. At this point, the abdomen was desufflated and all ports removed. All port sites were then closed with 4.O Monocryl subcuticular sutures. Dermabond was placed on each incision. The patient tolerated the procedure well, was extubated in the operating room postoperative and will be transferred to the recovery room in stable condition Estimated Blood Loss 10 Drains No Packing No Pathology Yes Complications No immediate complications Condition Stable Disposition PACU [facility] Billing Surgery - Charge Forward: Surgery Billing
[2024-10-04] MEDS: fentaNYL CITRATE INJ (*CRX) 100 MCG/2 ML VIAL 25 MCG IV PUSH ×2 (15:40→15:50)
[2024-10-04] MEDS: oxyCODONE HCL (*CRX) 5 MG TAB IR PO (16:36)
== END 2024-10-04 17:00 | disposition home or self-care (01) ==
PROVIDERS: PCP Nurse Practitioner Family; Visit Provider Surgery
PROC: 0FT44ZZ Resection of Gallbladder, Percutaneous Endoscopic Approach (ICD-10-PCS; CPT 47562; principal; 2024-10-04 14:15)
DX: K80.20 Calculus of gallbladder without cholecystitis without obstruction (principal); M19.90 Unspecified osteoarthritis, unspecified site; Z98.890 Other specified postprocedural states; Z82.49 Family history of ischemic heart disease and other diseases of the circulatory system
CPT/HCPCS: 47562; 36415; 82150; 88304; A9270; J0690; J1100; J1885; J2250; J2405; J2704; J3010; J7120

== ENCOUNTER 2025-06-22 01:30 | Day surgery (SDC) | payer BC, SELFPAY ==
--- OUTSIDE RECORDS SUMMARY | 2024-06-03 03:00 | XMS_ITS ---
Author Organization [facility] dicine Address [address] [place] [phone] Care Team Providers Care Sales Support Coordinator Name Role Phone Dr. Becky Connors Primary Care Provider [phone] Migration, Provider Unavailable Unavailable REASON FOR VISIT EMR-Bogdan Encounters Encounter Location Date Provider Diagnosis [facility] [address] [place] [address] 06/03/2024 Provider Migration Plan Of Treatment Medication Medication Name Sig Start Date Stop Date Notes predniSONE 20 MG Tablet 2 Oral every day ; Duration: 5 05/07/2023 05/11/2023 Doxycycline Hyclate 100 MG Tablet 1 Oral two times a day; Duration: 10 06/19/2023 06/28/2023 dexAMETHasone 6 MG Tablet 1 Oral every d ay; Duration: 2 10/05/2022 10/06/2022 Benzonatate 200 MG Capsule 1 Oral three times a day; Duration: 0 05/07/2023 05/07/2023 valACYclovir HCl 1 GM Tablet 1 Oral thre e times a day; Duration: 7 10/19/2023 10/25/2023 Azithromycin 250 MG Tablet Oral; Duration: 0 05/07/2023 Next Appt Details Provider Name:Chanel ann, 03/14/2026 09:45:00 AM, [address] [place] [address], [phone], [phone] Progress Notes * Christoph SANCHESOB:1960 (64 yo F)Acc No.[id number]:06/03/2024 Patient: Tejal SEALS :1960 A ge:63 Y S ex:Female Address:[address], [place], [address] * Refills Stop dexAMETHasone Tablet, 6 MG, Oral, 2, 1, every day, 2 Stop Doxycycline Hyclate Tablet, 100 MG, Oral, 20, 1, two times a day, 10 Stop Benzonatate Capsule, 200 MG, Oral, 30, 1, three times a day, 0 Stop Benzonatate Capsule, 200 MG, Oral, 30, 1, three times a day, 0 Stop valACYclovir HCl Tablet, 1 GM, Oral, 21, 1, three times a day, 7 Stop Azithromycin Tablet, 250 MG, Oral, 6, 2, every day, 1 Stop Azithromycin Tablet, 250 MG, Oral, 6, 0 Stop predniSONE Tablet, 20 MG, Oral, 10, 2, every day, 5 Subjective: * Chief Complaints: * E MR-Bogdan Objective: Past Vitals:* 10/19/2023 BP: 122/70 mm Hg, HR: 75 /mi n, Oxygen sat %: 98 %, Wt: 153.00 lbs, Wt-k.40 kg * * Date:
[2025-06-06 09:20] VITALS: BMI 26.2
--- OUTSIDE RECORDS SUMMARY | 2025-06-22 01:36 | XMS_ITS | Patient Health Record ---
Author Organization [facility] Address [address] [facility] [place] [address] Care Team Providers Care Reel Worker Name Role Phone Dr. Becky Connors Primary Care Provider [phone] Krupa Root Unavailable [phone] Becky Blanco Unavailable [phone] Allergies Allergen (clinical drug ingredient) Drug/Non Drug Allergy documented on EMR Reaction Allergy Type Onset Date Status aspirin Aspirin GI issues Drug Allergy 12/24/2023 Active Results Component Value Reference Range Flag Notes Thyroid Stimulating Hormone Reviewed date:02/27/2025 08:01:54 AM Interpretation: Performing Lab: Notes/Report: Church Official: Favio Robledo DO [address] [place], [place] [address] [facility] Test Performed by: TSH 3.46 0.45-5.33 mcIU/mL Lipid Panel {Chol, Trig, HDL , LDL} Reviewed date:02/27/2025 08:01:54 AM Interpretation: Performing Lab: Notes/Report: Test Performed by: [place] [id number] Church Official: Favio Robledo DO Cholesterol Total 191 <=199 mg/dL Triglycerides 63 0-149 mg/dL Triglyceride Reference Ranges: <150 mg/dL Normal 150 - 199 mg/dL Borderline High 200 - 499 mg/dL High >=500 mg/dL Very High LDL 129 <=100 mg/dL H LDL Optimal: <100 Near or above optimal: 100-129 Borderline high: 130-159 High: 160-189 Very high: >=190 Coronary heart disease risk factors should be considered when determining LDL goals. Please refer to ATPIII guidelines for further information. If LDL is not calculated, please call the lab to add on the direct LDL methodology, if desired. HDL 50 23-92 mg/dL Non HDL Cholesterol 142 <=130 mg/dL H Chol/HDL 4 0-5 Comprehensive Metabolic Pane l Reviewed date:02/27/2025 08:01:54 AM Interpretation: Performing Lab: Notes/Report: Test Performed by: [place] [address] Church Official: Favio Robledo DO Glucose Lvl 110 74-109 mg/dL H ADA risk stratification for diabetes <100 mg/dL = Normal 100-125 mg/dL = Increased risk for future diabetes >=126 mg/dL = Diabetes, if on more than one testing occasion BUN 13 7-25 mg/dL Creatinine Lvl 0.79 0.60-1.20 mg/dL eGFR CKD-EPI 83 >=90 mL/min/1.73 m2 L The CKD-EPI equation is validated in individuals 18 years of age and older. It is less accurate in patients with extremes of muscle mass, restriction of dietary protein, ingestion of creatine, extra-renal metabolism of creatinine, or treatment with medications that affect renal tubular creatinine secretion. GFR Categories in Chronic Kidney Disease (CKD) GFR GFR (mL/min/1.73 Category: square meters): Interpretation: G1 90 or greater Normal or high* G2 60-89 Mild decrease* G3a 45-59 Mild to moderate decrease G3b 30-44 Moderate to severe decrease G4 15-29 Severe decrease G5 14 or less Kidney failure *In the absence of evidence of kidney damage, neither GFR category G1 nor G2 fulfill the criteria for CKD (Kidney Int Suppl 2013;3:1-150) Calcium Lvl 9.0 8.6-10.3 mg/dL Sodium Lvl 139 136-145 mmol/L Potassium Lvl 4.1 3.5-5.1 mmol/L Chloride Lvl 106 98-107 mmol/L CO2 28 21-31 mmol/L Anion Gap 5.2 <=16.0 mmol/L Alk Phos 68 34-104 unit/L Bilirubin Total 0.4 0.3-1.0 mg/dL Albumin Lvl 4.1 3.5-5.2 g/dL Protein Total 7.0 6.4-8.9 g/dL Albumin/Globulin Ratio 1.4 1.1-2.5 ALT 16 7-52 unit/L AST 20 13-39 unit/L CBC w Auto Diff Reviewed date:02/27/2025 08:01:54 AM Interpretation: Performing Lab: Notes/Report: Test Performed by: [place] [id number] Church Official: Favio Rboledo DO WBC 6.3 4.0-11.7 K/mcL RBC 4.30 3.80-5.41 x10*6/mcL Hgb 12.9 11.3-15.2 g/dL Hct 38.6 33.2-45.3 % MCV 89.7 79.5-98.1 fL MCH 30.0 27.0-34.2 pg MCHC 33.5 31.8-35.3 g/dL RDW 14.0 12.0-16.4 % Platelets 361 149-393 K/mcL MPV 8.0 7.0-11.0 fL Neutro Auto 39.6 45.3-79.0 % L Lymph Auto 41.1 11.8-45.9 % Hidalgo Auto 12.5 4.4-12.0 % H Eosinophil Auto 5.8 0.0-6.3 % Basophil Auto 1.0 0.2-1.6 % Neutro Absolute 2.5 2.4-8.4 x10*3/mcL Lymph Absolute 2.6 0.8-3.7 x10*3/mcL Hidalgo Absolute 0.8 0.3-1.1 x10*3/mcL Eos Absolute 0.4 0.0-0.5 x10*3/mcL Baso Absolute 0.1 0.0-0.1 x10*3/mcL T4 Free Reviewed date:02/27/2025 08:01:54 AM Interpretation: Performing Lab: Notes/Report: Test Performed by: [address] [address] Church Official: Favio Robledo DO T4 Free 0.87 0.60-1.70 ng/dL Vitamin D 25 Hydroxy Reviewed date:02/27/2025 08:01:54 AM Interpretation: Performing Lab: Notes/Report: Test Performed by: [place] [id number] Church Official: Favio Robledo DO Vitamin D 25 OH 31 30-100 ng/mL Vitamin D25 Interpretation: Deficient: <= 20 ng/mL Insufficient: 21-29 ng/mL Sufficient: 30-100 ng/mL Upper Safety Limit: >100 ng/mL Hemoglobin A1c {Glycosylated } Reviewed date:02/27/2025 08:01:54 AM Interpretation: Performing Lab: Notes/Report: Test Performed by: [place] [address] Church Official: Favio Robledo DO Hemoglobin A1c 5.5 <=6.4 % Hemoglobin A1C < 5.7% = Normal 5.7-6.4% = Increased risk for future diabetes >=6.5% = Diabetes eAvg Glucose 111 <=117 mg/dL eAG Reference Range <117 mg/dL = Normal 117-137 mg/dL = Increased Risk For Future Diabetes >137 mg/dL = Diabetes MAMMOGRAM, SCREENING Reviewed date:04/27/2025 10:43:15 AM Interpretation: Performing Lab: Notes/Report: MG SCREENING W EVELINA MCCURDY Reviewed date:03/28/2025 03:37:31 PM Interpretation: Performing Lab: Notes/Report: This is a summary report. The complete report is available in the patient's medical record. If you cannot access the medical record, please contact the sending organization for a detailed fax or copy. [address] [place] [address] EXAMINATION: Digital bilateral screening mammogram with 3-D tomosynthesis EXAM DATE/TIME: 03/23/2025 4:16 PM REASON FOR EXAM: Screening Long-standing bilateral nipple inversion. COMPARISON: 06/01/2017. 05/16/2024 Technique: Digital screening mammography of both breasts was performed in addition to 3-D Tomosynthesis technique. This study was read with the assistance of a computer-aided detection system. Tissue density: The breasts are heterogeneously dense, which may obscure small masses. Findings: There is no new focal asymmetry, dominant mass lesion, area of skin thickening, or cluster of suspicious appearing calcifications in either breast to suggest malignancy. ===== IMPRESSION: ===== 1. Stable mammographic appearance with no new findings to suggest malignancy in either breast. Assessment: ACR BI-RADS 2 - BENIGN FINDING(S) Recommendation: 1:Routine Screening Bilateral Comments: Ordered By: KRUPA ROOT Interpreted By: Romeo Stiles, 03/26/2025 5:34 PM CBC w Auto Diff Reviewed date:02/01/2025 09:00:49 AM Interpretation: Performing Lab: Notes/Report: LOCATION: [facility] Test Performed by: Jade Cameron [address] [address] Church Official: Favio Robledo DO Report Forwarded By: [address] [address] WBC 6.8 4.0-11.7 K/mcL LOCATION LOCATION: [facility] RBC 4.44 3.80-5.41 x10*6/mcL LOCATION LOCATION: [facility] Hgb 13.5 11.3-15.2 g/dL LOCATION LOCATION: [facility] Hct 40.5 33.2-45.3 % LOCATION LOCATION: [facility] MCV 91.2 79.5-98.1 fL LOCATION LOCATION: [facility] MCH 30.4 27.0-34.2 pg LOCATION LOCATION: [facility] MCHC 33.4 31.8-35.3 g/dL LOCATION LOCATION: [facility] RDW 14.9 12.0-16.4 % LOCATION LOCATION: [facility] Platelets 426 149-393 K/mcL H LOCATION LOCATION: [facility] MPV 7.9 7.0-11.0 fL LOCATION LOCATION: [facility] Neutro Auto 44.3 45.3-79.0 % L LOCATION LOCATION: [facility] Lymph Auto 38.0 11.8-45.9 % LOCATION LOCATION: [facility] Hidalgo Auto 13.1 4.4-12.0 % H LOCATION LOCATION: [facility] Eosinophil Auto 3.9 0.0-6.3 % LOCATION LOCATION: [facility] Basophil Auto 0.7 0.2-1.6 % LOCATION LOCATION: [facility] Neutro Absolute 3.0 2.4-8.4 x10*3/mcL LOCATION LOCATION: [facility] Lymph Absolute 2.6 0.8-3.7 x10*3/mcL LOCATION LOCATION: [facility] Hidalgo Absolute 0.9 0.3-1.1 x10*3/mcL LOCATION LOCATION: [facility] Eos Absolute 0.3 0.0-0.5 x10*3/mcL LOCATION LOCATION: [facility] Comprehensive Metabolic Pane l Reviewed date:02/01/2025 09:00:49 AM Interpretation: Performing Lab: Notes/Report: LOCATION: [facility] Test Performed by: Jade Cameron [address] [address] Church Official: Favio Robledo DO Report Forwarded By: [id number] [address] Glucose Lvl 66 74-109 mg/dL L ADA risk stratification for diabetes <100 mg/dL = Normal 100-125 mg/dL = Increased risk for future diabetes >=126 mg/dL = Diabetes, if on more than one testing occasion LOCATION LOCATION: [facility] BUN 12 7-25 mg/dL LOCATION LOCATION: [facility] Creatinine Lvl 0.89 0.60-1.20 mg/dL LOCATION LOCATION: [facility] eGFR CKD-EPI 72 >=90 mL/min/1.73 m2 L The CKD-EPI equation is validated in individuals 18 years of age and older. It is less accurate in patients with extremes of muscle mass, restriction of dietary protein, ingestion of creatine, extra-renal metabolism of creatinine, or treatment with medications that affect renal tubular creatinine secretion. GFR Categories in Chronic Kidney Disease (CKD) GFR GFR (mL/min/1.73 Category: square meters): Interpretation: G1 90 or greater Normal or high* G2 60-89 Mild decrease* G3a 45-59 Mild to moderate decrease G3b 30-44 Moderate to severe decrease G4 15-29 Severe decrease G5 14 or less Kidney failure *In the absence of evidence of kidney damage, neither GFR category G1 nor G2 fulfill the criteria for CKD (Kidney Int Suppl 2013;3:1-150) LOCATION LOCATION: [facility] Calcium Lvl 8.6 8.6-10.3 mg/dL LOCATION LOCATION: [facility] Sodium Lvl 141 136-145 mmol/L LOCATION LOCATION: [facility] Potassium Lvl 4.3 3.5-5.1 mmol/L LOCATION LOCATION: [facility] Chloride Lvl 105 98-107 mmol/L LOCATION LOCATION: [facility] CO2 30 21-31 mmol/L LOCATION LOCATION: [facility] Anion Gap 6.3 <=16.0 mmol/L LOCATION LOCATION: [facility] Alk Phos 71 34-104 unit/L LOCATION LOCATION: [facility] Bilirubin Total 0.3 0.3-1.0 mg/dL LOCATION LOCATION: [facility] Albumin Lvl 4.1 3.5-5.2 g/dL LOCATION LOCATION: [facility] Protein Total 6.8 6.4-8.9 g/dL LOCATION LOCATION: [facility] Albumin/Globulin Ratio 1.5 1.1-2.5 LOCATION LOCATION: [facility] ALT 16 7-52 unit/L LOCATION LOCATION: [facility] AST 21 13-39 unit/L LOCATION LOCATION: [facility] Thyroid Stimulating Hormone Reviewed date:02/01/2025 09:00:49 AM Interpretation: Performing Lab: Notes/Report: LOCATION: [facility] Test Performed by: [place] [address] Church Official: Favio Robledo DO Report Forwarded By: [address] [address] TSH 2.94 0.45-5.33 mcIU/mL LOCATION LOCATION: [facility] Uric Acid Reviewed date:02/01/2025 09:00:49 AM Interpretation: Performing Lab: Notes/Report: LOCATION: [facility] Test Performed by: [place] [address] Church Official: Favio Robledo DO Report Forwarded By: [address] [address] Uric Acid 3.9 2.3-6.6 mg/dL LOCATION LOCATION: [facility] Charge Venipuncture Reviewed date:02/01/2025 09:00:49 AM Interpretation: Performing Lab: Notes/Report: LOCATION: [facility] Report Forwarded By: [address] [place] [address] HIDA Scan Reviewed date:09/15/2024 02:30:46 PM Interpretation: Performing Lab: Notes/Report: Ultrasound : Abdomen, upper Reviewed date:08/31/2024 11:42:44 AM Interpretation:Normal Performing Lab: Notes/Report: Normal CT of Coronary Arteries Reviewed date:11/28/2024 03:09:10 PM Interpretation:Pt did not get done Performing Lab: Notes/Report: Pt did not get done Reason For Referral Reason Please refer to surg ical group at [facility] for GB and dyskinesia of GB- Diagnosis 1 Dyskinesia of gallbl adder (K82.8) Diagnosis 2 Right upper quadrant pain (R10.11) Referral Organization [facility] Referring Provider First Name Dr. Pena Referring Provider Last Name [place] Referring Provider [facility] petrona Referred Provider Specialty General Surg juan General Notes Reginald Josefina 0 09/25/2024 01:24:16 PM CDT >Referral faxed to [facility] General Surgey [phone], Ann Whittington 09/27/2024 03:28:41 PM CDT >consult note in chart. Clinical Notes Oralia Woods 2024 05:05:00 PM CDT >pt called asking about status of referral. Referral Priority Urgent Reason screening colonoscop y Diagnosis 1 Encounter for screen ing for malignant neoplasm of colon (Z12.11) Referral Organization [facility] Referring Provider First Name Dr. Pena Referring Provider Last Name [place] Referring Provider [facility] [place] Referred Provider Specialty Gastroentero logy General Notes Fransisca Gutierres 11/22 01:14:47 PM CDT >Referral sent to [facility] P: [phone] F: [phone] Clinical Notes Jessica Knutson 11/21 01:26:35 PM CDT >Where ever pt would like to go Referral Priority Routine Medications Medication SIG (Take, Route, Frequency, Duration) Notes Start Date End Date Status Albuterol Sulfate HFA 108 (90 Base) MCG/ACT Aerosol Solution 2 puffs as needed Inhalation every 4 hrs; Duration: 30 days 09/18/2024 Active Estrace 0.1 MG/GM Cream 1 gram nightly f or 2 weeks and then 3 times per week Vaginal weekly; Duration: 30 days 03/08/2025 Active Triamcinolone Acetonide 0.1 % Ointment 1 External as directed; Duration: 0 10/19/2023 Not-Taking Vitamin D3 Ultra Strength 125 MCG (5000 UT) Capsule 1 Oral every day; Duration: 0 12/30/2023 Not-Taking Social History Tobacco Use: Social History Observation Description Date Details (start date - stop date) Never Smoker NA - NA Social History Household: Social Info Question Answer Notes Household Marital status: Tobacco Use: Social Info Question Answer Notes Tobacco Control (Standard) Tobacco use: Nonsmoker Additional Details Category Social Info Options Details Miscellaneous: Occupation: works full-ti me: [employer] Drug/Alcohol: Do you drink alcohol? 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) 4 Active confirmed Problem Allergic rhinitis (40470963) Allergic rhinitis, unspecified (J30.9) 3 Active confirmed Problem Restless legs syndrome (15573554) Restless legs syndrome (G25.81) 7 Active confirmed Problem Vitamin D deficiency (64078179) Vitamin D deficiency, unspecified (E55.9) 4 Active confirmed Problem Postmenopausal state (72024738) Post-menopause (Z78.0) Active confirmed Problem Atrophy of vagina (668692441) Vaginal atrophy (N95.2) Active confirmed Vital Signs Heart Rate 76 /min 03/08/2025 Temperature 96.0 degrees Fahrenheit 03/08/2025 Respiratory Rate 16 /min 08/24/2024 Height-cm 165.1 cm 03/08/2025 Oximetry 95 % 03/08/2025 Blood pressure diastolic 78 mm Hg 03/08/2025 Weight-kg 72.85 kg 03/08/2025 Height 65.00 in 03/08/2025 Blood pressure systolic 134 mm Hg 03/08/2025 Weight 160.6 lbs 03/08/2025 BMI 26.72 kg/m2 03/08/2025 Procedures Procedure Date Ordered Date Performed Result Body Sit e REMOVAL OF GALLBLADDER 10/18/2024 10/04/2024 N/A Encounters Encounter Location Date Provider Diagnosis [place] [address] 07/31/2024 Becky Blanco Persistent cough R05.3 and URI, acute J06.[address] [address] 08/24/2024 Krupa Root Precordial pain R07.2 and Elevated lymphocytes D72.[address] [address] 09/18/2024 Krupa Root Acute cough R05.[address] [address] 03/08/2025 Krupa Root Encounter for general adult medical examination without abnormal findings Z00.00 ; Encounter for screening mammogram for malignant neoplasm of breast Z12.31 ; Precordial pain R07.2 ; Vaginal atrophy N95.2 ; Stricture and atresia of vagina N89.5 ; Allergic rhinitis, unspecified J30.9 ; Headache, unspecified R51.9 ; Post-menopause Z78.0 and Bumps on skin L98.[address] [address] 09/04/2024 Dr. Becky Connors Precordial pain R07.2 and Acute diarrhea R19.[address] [address] 09/18/2024 Dr. Becky Connors Dyskinesia of gallbladder K82.8 and Right upper quadrant pain R10.[address] [address] 02/26/2025 Krupa Root Vitamin D deficiency, unspecified E55.9 and Encounter for general adult medical examination without abnormal findings Z00.[address] [address] 11/21/2024 Dr. Becky Connors Assessments Encounter Date Diagnosis (ICD Code) Assessment Notes Treatment Notes Treatment Clinical Notes Section Notes 03/08/2025 Encounter for general adult medical examination without abnormal findings (ICD-10 - Z00.00) -Reviewed labs. Will get mammogram in May and getting colonoscopy in Apr at [facility]. Offered Shingrix, TDAP, and RSV. She declined. 03/08/2025 Encounter for screening mammogram for malignant neoplasm of breast (ICD-10 - Z12.31) Due for mammogram in May 2025. Will get done at [facility] 09/18/2024 Acute cough (ICD-10 - R05.1) - Likely viral bronchitis, with a possibility of bacterial infection. This type of cough will most likely persistent and may last a long time.- Prescribe Z-Jarvis (azithromycin) as a precaution against bacterial infection. Recommend Mucinex expectorant for cough. Prescribe oral steroids and albuterol inhaler (two puffs every four hours). Will give cough syrup with Codeine. 09/18/2024 Right upper quadrant pain (ICD-10 - R10.11) 09/18/2024 Dyskinesia of gallbladder (ICD-10 - K82.8) 02/26/2025 Vitamin D deficiency, unspecified (ICD-10 - E55.9) 07/31/2024 Persistent cough (ICD-10 - R05.3) - Possible bronchitis.- Prescribe azithromycin (z-jarvis) with two tablets on the first day and one tablet for the next four days. Initiate a nine-day oral steroid taper.- Recommend Flonase nasal spray, one spray in each nostril twice a day.- If symptoms do not improve in 1-2 weeks, consider a chest x-ray.- Risks and side effects: Advised to take medications with food to avoid stomach upset. 07/31/2024 URI, acute (ICD-10 - J06.9) 08/24/2024 Precordial pain (ICD-10 - R07.2) -No more chest pain since leaving ER. Will check GB with getting an U/S of GB at [facility] -Both parents have hx of coronary heart disease. With episode of CP will get CT of coronary arteries. 08/24/2024 Elevated lymphocytes (ICD-10 - D72.820) - Elevated lymphocytes suggest a viral infection. Other white blood cell counts are also elevated, but total white blood count is normal.- Recheck blood work to ensure levels return to normal. -She will come back for health assessment labs 09/04/2024 Precordial pain (ICD-10 - R07.2) 09/04/2024 Acute diarrhea (ICD-10 - R19.7) 02/26/2025 Encounter for general adult medical examination without abnormal findings (ICD-10 - Z00.00) 03/08/2025 Precordial pain (ICD-10 - R07.2) - Intermittent chest pain, was thought it would has resolved when she had GB removed, but will have an episode every 1-2 months - Have ordered CT of coronary arteries, but has not got done -Recommend she trial omeprazole OTC or famotidine 03/08/2025 Vaginal atrophy (ICD-10 - N95.2) - Vaginal atrophy and stenosis with associated dryness and discomfort, likely related to menopause and decreased estrogen. - Prescribed topical estrogen cream for external and intravaginal use. Discussed use of graduated vaginal dilators to maintain patency. Provided instructions for application and dosing schedule (nightly for two weeks, then 2-3 times per week for maintenance). - Risks and side effects: Discussed small risk of systemic estrogen absorption and potential increased risk of breast and ovarian cancer, especially in presence of uterus and ovaries. Patient informed and expressed interest in proceeding. 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 - Encourage regular chiropractic visits and stress management techniques to alleviate tension. 03/08/2025 Post-menopause (ICD-10 - Z78.0) - Recommended calcium supplementation to achieve 1200 mg daily, in divided doses (600 mg morning and evening), in conjunction with vitamin D supplementation. 03/08/2025 Bumps on skin (ICD-10 - L98.9) - Skin lesions likely due to excoriation and picking; no evidence of infection or malignancy. -All are scabbed or disrupted and can't see what it starts - Encourage avoidance of picking and consider use of emollients to improve skin texture. 09/18/2024 Other - GB Ejection fraction measured at 29%, which is below the normal threshold of 35%. Gallbladder function is compromised, not producing bile effectively.- Referral to a surgeon for evaluation and discussion of potential gallbladder removal. -See Telephone encounter Plan Of Treatment Next Appt Details Provider Name:Krupa ann, 03/14/2026 09:45:00 AM, [address] [facility], [place], [address], [id number] Insurance Providers Payer Name Payer Address Payer Phone Subscriber Number Group Number Insured Name Patient Relationship to Insured Coverage Start Date [facility]age End Date [facility] [address] [place] [address] [id number] Tejal Waite Self - patient is the insured 4 Medical (General) History Medical History History ICD Code Vitamin D deficiency, unspecified E55.9 Restless legs syndrome G25.81
[2025-06-22 11:11] VITALS: BP 145/88; PULSE 72; RESP 18; TEMP 36.6; O2SAT 100
[2025-06-22] MEDS: LACTATED RINGERS 1,000 ML 150 ML IV CONT (11:12)
--- NOTE | 2025-06-22 11:29 | P.PNAN_ITS ---
Anes - Initial Pre Proc Eval Procedure: Operation Date: 06/22/25 12:30 Proposed Procedures p Screening Colonoscopy - Geovanny Judd MD Date/Time: 06/22/25 11:29 Surgeon: Geovanny Judd MD Pre Op Diagnosis: Encounter for screening for malignant neoplasm of Patient Data Age: 64 Gender: F Height: 1.65 m Weight: 71.4 kg Last Vital Signs Temp 97.9 F 06/22/25 11:11 Pulse 72 06/22/25 11:11 Resp 18 06/22/25 11:11 BP 145/88 H 06/22/25 11:11 Pulse Ox 100 06/22/25 11:11 O2 Del Method Room Air 06/22/25 11:11 Allergies Allergy/AdvReac Type Severity Reaction Status Date / Time aspirin AdvReac Mild MAKES MY Verified 06/06/25 09:17 STOMACH RAW Home Medications ?Medication ?Instructions ?Recorded ?Confirmed ?Type No Home Medications 06/22/25 06/22/25 H istory Patient hx anesthesia problems: none Family hx anesthesia problems: none Results Review: All pre-operative results and documents have been reviewed as part of the pre- operative evaluation. [facility] Past Medical History Medical History Headache Gallbladder disorder Arthritis Allergies Surgical History Surgical History Hx laparoscopic cholecystectomy 10/04/24 Laparoscopic cholecystectomy, Dr. Sim History of tonsillectomy and adenoidectomy H/O parathyroidectomy History of ankle surgery Family History Family History Father Cerebrovascular accident Heart disease Mother Heart disease Social History Social History Smoking status: Never smoker Alcohol intake: never Substance use: never Substance use type: does not use Current Housing: Decline to Answer Concerned About Future Housing: Decline to Answer Difficulty Paying Gas/Electric Bills: Decline to Answer Difficulty Paying for Meds: Decline to Answer Currently Unemployed: Decline to Answer Difficulty w/ Childcare or Family Care: Decline to Answer Living arrangements: with family Spiritual care concerns: No Anes - Eval Final PreProcedure Day of Procedure 06/22/25 11:29 Patient weight: normal Lungs: normal air movement Airway: Mallampati scale class II Neurological: alert and oriented Last oral intake: >/= 8 hours ASA classification: I Emergent: no Anesthetic plan: proceed Anesthesia type and monitoring: general GIVS and standard monitoring Results Review: All pre-operative results and documents have been reviewed as part of the pre- operative evaluation. Healthy, active, no cp or sob. Informed Consent: The patient's anesthetic plan and its attendant risks and benefits were discussed with the patient/family/POA. Questions were solicited and answers provided to the satisfaction of the patient/family/POA.
--- NOTE | 2025-06-22 12:28 | P.HP_ITS ---
H&P: HPI History of Present Illness Date/Time: 06/22/25 12:28 Chief Complaint: History of colon polyps Narrative: The patient has a history of colonic polyps, the last colonoscopy was approximately 6 years ago. Review of Systems Review of Systems: All systems reviewed & are unremarkable except as noted in HPI and below PMFSH Past Medical History Medical History Headache Gallbladder disorder Arthritis Allergies Surgical History Surgical History Hx laparoscopic cholecystectomy 10/04/24 Laparoscopic cholecystectomy, Dr. Sim History of tonsillectomy and adenoidectomy H/O parathyroidectomy History of ankle surgery Family History Family History Father Cerebrovascular accident Heart disease Mother Heart disease Social History Social History Smoking status: Never smoker Alcohol intake: never Substance use: never Substance use type: does not use Current Housing: Decline to Answer Concerned About Future Housing: Decline to Answer Difficulty Paying Gas/Electric Bills: Decline to Answer Difficulty Paying for Meds: Decline to Answer Currently Unemployed: Decline to Answer Difficulty w/ Childcare or Family Care: Decline to Answer Living arrangements: with family Spiritual care concerns: No Meds Home Medications and Allergies Home Medications ?Medication ?Instructions ?Recorded ?Confirmed ?Type No Home Medications 06/22/25 06/22/25 H istory Allergies Allergy/AdvReac Type Severity Reaction Status Date / Time aspirin AdvReac Mild MAKES MY Verified 06/06/25 09:17 STOMACH RAW Vital Signs Vital Signs - 24 hr 06/22/25 11:11 Temperature 97.9 F Pulse Rate 72 Respiratory Rate 18 Blood Pressure 145/88 H Pulse Oximetry 100 Oxygen Delivery Room Air Exam Const: General: cooperative and healthy appearing Resp: Effort & Inspection: normal respiratory effort and able to speak in complete sentences Auscultation: clear to auscultation bilaterally Cardio: Rate: regular rate Rhythm: regular rhythm GI: Inspection: normal to inspection GI Palp: No No hepatosplenomegaly present Auscultation: normal bowel sounds Rectal Exam: deferred Skin: General skin exam: normal color Psych: Appearance: grossly normal Mental Status: mental status grossly normal Assessment and Plan Assessment and plan (1) History of colonic polyps: Code(s): Z86.0100 - Personal history of colon polyps, unspecified Status: Acute Assessment and Plan: The patient is deemed a good candidate for the procedure. Consent signed. Will proceed. Prior Studies I have reviewed the following patient records and this information was taken into consideration when formulating the assessment and plan.: previous labs, previous ER visits, previous hospitalizations and previous clinic visits
--- NOTE | 2025-06-22 12:45 | S_PTH ---
PATIENT: Tejal Waite LOC: [facility]#:[id number] AGE/SX: 64/F ROOM: RE06/22/[address]: Geovanny Judd MD : 1960 BED: DIS: 06/22/2025 SPEC #: [id number] RECD: 06/22/25 13:46 STATUS: MIRLANDE REQ #: [id number] ANUSHA: 06/22/25 12:[address]: Geovanny Judd DEPT: [facility] RECD BY: Rere Marcum ENTERED: 06/22/25 13:46 SP TYPE: Surgical OTHR DR: Chanel Randle, ANP Tissues: A - Colon Polypectomy Procedures: Hematoxylin and Eosin Stain Gross and Microscopic Level 4
[2025-06-22 12:50] VITALS: BP 100/60; PULSE 80; RESP 20; O2SAT 95
[2025-06-22 13:00] VITALS: BP 121/67; PULSE 64; RESP 18; O2SAT 97
[2025-06-22 13:10] VITALS: BP 132/72; PULSE 66; RESP 18; O2SAT 98
== END 2025-06-22 13:24 | disposition home or self-care (01) ==
PROVIDERS: PCP Nurse Practitioner Family; Referring Provider Family Medicine; Visit Provider Internal Medicine Gastroenterology
PROC: 0DJD8ZZ Inspection of Lower Intestinal Tract, Via Natural or Artificial Opening Endoscopic (ICD-10-PCS; CPT 45378; principal; 2025-06-22 12:30)
DX: Z12.11 Encounter for screening for malignant neoplasm of colon (principal); D12.3 Benign neoplasm of transverse colon; M19.90 Unspecified osteoarthritis, unspecified site; Z98.890 Other specified postprocedural states; Z90.49 Acquired absence of other specified parts of digestive tract; Z82.49 Family history of ischemic heart disease and other diseases of the circulatory system
CPT/HCPCS: 45385; 88305; J2003; J2704; J7120